=== PATIENT | male | born 1985 | race Caucasian/White ===

== ENCOUNTER → 2020-01-06 11:37 | Outpatient (CLI) | payer OTHER, SELFPAY ==
--- NOTE | 2020-01-06 13:34 | STRESSREP ---
Stress Test Report Treadmill EKG report: Resting EKG normal sinus rhythm, normal axis, normal intervals, early repolarization normality consistent with young age. Treadmill EKG: The patient exercised according to a [employer] protocol for 6 minutes and 11 seconds achieving a maximum workload of 7.40 METS. Resting blood pressure was 66 bpm and ryan to maximum 171 bpm which represents 91% of the maximal age-predicted heart rate. Resting blood pressure was 132/84, and ryan to maximum 144/68. Test was terminated due to the attainment of target heart rate, dyspnea and leg discomfort. During exercise patient's heart rate increased as expected. Patient had no dynamic EKG changes to suggest ischemia. No arrhythmias noted. Conclusions: Normal, adequate, treadmill EKG. Negative for ischemia by EKG criteria. No arrhythmias noted. Appropriate blood pressure response to exercise. Below average exercise capacity for age. Patient tolerated procedure well. No complications.
== END ==
PROVIDERS: PCP Internal Medicine; Referring Provider Nurse Practitioner Primary Care; Visit Provider Nurse Practitioner Primary Care
DX: R07.9 Chest pain, unspecified (principal)
CPT/HCPCS: 93017